=== PATIENT | male | born 1995 | race Caucasian/White ===

== ENCOUNTER 2018-07-01 21:18 | Emergency (ER) | payer BC ==
[~2018-07-01] VITALS: Ht 175.3 cm; Wt 65.9 kg
[2018-07-01 21:23] VITALS: BP 157/72; PULSE 92; TEMP 97.3
== END 2018-07-01 22:07 | disposition home or self-care (01) ==
LOC: COL.ER 21:18
DX: S09.90XA Unspecified injury of head, initial encounter (principal); F90.9 Attention-deficit hyperactivity disorder, unspecified type; W06.XXXA Fall from bed, initial encounter; W22.8XXA Striking against or struck by other objects, initial encounter